=== PATIENT | male | born 1990 | race Caucasian/White ===

== ENCOUNTER 2018-04-14 12:43 | Emergency (ER) | payer OTHER ==
[~2018-04-14] VITALS: Ht 185.4 cm; Wt 81.6 kg
--- NOTE | 2018-04-14 13:00 | NUR ---
patient presented to the ER from longterm accompanied by [employer] d/t agitation, combative. on handcuff. vital signs wnl. connected to the monitor. kept comfortable. will continue to monitor accordingly.
[2018-04-14] MEDS ORDERED: OLANZAPINE 10 MG VIAL IM ONE ×2 (13:27→13:30)
--- NOTE | 2018-04-14 19:30 | NUR ---
endorsed to Sonia ROWAN for salud.
--- NOTE | 2018-04-14 19:45 | NUR ---
Patient is resting comfortably in bed with eyes closed. Easily aroused. VSS. RR EVEN & UNLABORED. WILL CONT TO MONITOR. [employer] @ BS.
[2018-04-14] MEDS ORDERED: LORAZEPAM INJ 2 MG/ML VIAL IM ONE (21:00)
--- NOTE | 2018-04-14 21:44 | NUR ---
Patient discharged to home in stable condition. Written and verbal after care instructions given [employer]. [employer] verbalizes understanding of instruction.
[2018-04-14 21:46] VITALS: BP 110/68
== END 2018-04-14 21:47 ==
LOC: ER 12:45
DX: S00.83XA Contusion of other part of head, initial encounter (principal); F29 Unspecified psychosis not due to a substance or known physiological condition; W22.8XXA Striking against or struck by other objects, initial encounter; Y93.89 Activity, other specified; Y92.89 Other specified places as the place of occurrence of the external cause; Y99.8 Other external cause status
CPT/HCPCS: 70450-TC; 72125-TC; J3490